=== PATIENT | female | born 1965 | race African-American/Black ===

== ENCOUNTER → 2017-09-15 | Outpatient (CLI) | payer BC ==
[~2017-09-15] MED LIST: AMLO10TA80 PO; HYDR-519 PO; LOSA100T14 PO; OXYC-100 PO
[2017-09-15 08:23] LABS: CLARITY URINE CLEAR (CLEAR); COLOR URINE YELLOW (YELLOW); KETONES URINE NEGATIVE (NEGATIVE); LEUKOCYTE ESTERASE URINE 1+ (NEGATIVE); NITRITE URINE NEGATIVE (NEGATIVE); OCCULT BLOOD URINE NEGATIVE (NEGATIVE); PROTEIN URINE NEGATIVE (NEGATIVE); SPECIFIC GRAVITY URINE 1.022 (1.005-1.030)
[2017-09-15 08:34] LABS: BASOPHILS % 0.6 % (0.0-2.0); EOSINOPHILS % 1.2 % (0.0-5.0); HEMATOCRIT. 35.8 % (36.0-48.0); HEMOGLOBIN. 12.3 g/dL (12.0-16.0); LYMPHOCYTES % 38.7 % (20.0-50.0); MEAN CORPUSCULAR HEMOGLOBIN 31.4 pg (28.0-32.0); MEAN CORPUSCULAR VOLUME 91.5 fL (81.0-99.0); MEAN PLATELET VOLUME 7.7 fl (7.4-10.4); MONOCYTES % 7.1 % (2.0-8.0); NEUTROPHILS % 52.4 % (40.0-76.0); PLATELET 323 x1000/uL (130-400); RED BLOOD CELL COUNT 3.91 mill/uL (4.2-5.4); RED CELL DISTRIBUTION WIDTH 13.1 % (11.6-14.6)
[2017-09-15 08:37] LABS: CHLORIDE 101 mEq/L (98-107)
[2017-09-15 08:46] LABS: LDL CHOLESTEROL 90 mg/dL (5-100)
[2017-09-15 08:48] LABS: HDL CHOLESTEROL 58 mg/dL (40-59); TOTAL IRON BINDING CAPACITY 291 ug/dL (250-450)
== END | disposition home or self-care (01) ==
LOC: LAB 07:47
PROVIDERS: ATTEND Internal Medicine
DX: I10 Essential (primary) hypertension (principal); E78.5 Hyperlipidemia, unspecified; R73.03 Prediabetes; R79.89 Other specified abnormal findings of blood chemistry
CPT/HCPCS: 36415; 80053; 80061; 81003; 82306; 82728; 83036; 83540; 83550; 84443; 85025; 87086

== ENCOUNTER → 2017-09-21 | Outpatient (CLI) | payer BC | END | disposition home or self-care (01) | LOC: MAMMO 07:44 | PROVIDERS: ATTEND Internal Medicine | DX: Z12.31 Encounter for screening mammogram for malignant neoplasm of breast (principal) | CPT/HCPCS: 77067 ==

== ENCOUNTER 2017-12-27 22:58 | Emergency (ER) | payer BC ==
[~2017-12-27] VITALS: Ht 157.5 cm; Wt 68.0 kg
[2017-12-28 01:16] VITALS: BP 141/80
== END 2017-12-28 01:18 | disposition home or self-care (01) ==
LOC: ER 22:58
DX: K04.7 Periapical abscess without sinus (principal); I10 Essential (primary) hypertension; Z88.5 Allergy status to narcotic agent; Z90.710 Acquired absence of both cervix and uterus
CPT/HCPCS: 99283; Z7610

== ENCOUNTER → 2019-03-10 | Outpatient (CLI) | payer BC ==
[~2019-03-10] MED LIST changes: -LOSA100T14 PO; +LOSA100T32 PO
[2019-03-10 05:52] LABS: CHLORIDE 109 mEq/L (98-107)
[2019-03-10 06:00] LABS: HDL CHOLESTEROL 63 mg/dL (40-59)
[2019-03-10 06:01] LABS: LDL CHOLESTEROL 85 mg/dL (5-100)
[2019-03-10 06:40] LABS: BASOPHILS % 0.6 % (0.0-2.0); EOSINOPHILS % 2.2 % (0.0-5.0); HEMATOCRIT. 39.2 % (36.0-48.0); HEMOGLOBIN. 13.2 g/dL (12.0-16.0); LYMPHOCYTES % 34.1 % (20.0-50.0); MEAN CORPUSCULAR HEMOGLOBIN 32.1 pg (28.0-32.0); MEAN CORPUSCULAR VOLUME 95.5 fL (81.0-99.0); MEAN PLATELET VOLUME 8.4 fl (7.4-10.4); MONOCYTES % 7.7 % (2.0-8.0); NEUTROPHILS % 55.4 % (40.0-76.0); PLATELET 256 x1000/uL (130-400); RED CELL DISTRIBUTION WIDTH 13.1 % (11.6-14.6)
[2019-03-10 07:31] LABS: CLARITY URINE CLEAR (CLEAR); COLOR URINE YELLOW (YELLOW); KETONES URINE TRACE (NEGATIVE); LEUKOCYTE ESTERASE URINE NEGATIVE (NEGATIVE); NITRITE URINE NEGATIVE (NEGATIVE); OCCULT BLOOD URINE NEGATIVE (NEGATIVE); PH URINE 5.5 (4.5-8.0); PROTEIN URINE NEGATIVE (NEGATIVE); SPECIFIC GRAVITY URINE 1.029 (1.005-1.030)
== END | disposition home or self-care (01) ==
LOC: LAB 03:28
PROVIDERS: ATTEND Internal Medicine
DX: I10 Essential (primary) hypertension (principal)
CPT/HCPCS: 36415; 80061; 81003; 84443

== ENCOUNTER 2020-03-22 01:37 | Emergency (ER) | payer BC ==
[~2020-03-22] VITALS: Ht 154.9 cm; Wt 82.0 kg
[2020-03-22 01:47] VITALS: BP 132/85
[2020-03-22] MEDS ORDERED: ONDANSETRON HCL 4MG/2ML INJ IV STA (02:07)
[2020-03-22] MEDS ORDERED: MORPHINE SULFATE 4 MG/ML CPJ (NOT FOR IM USE) IV STA (02:07)
[2020-03-22] MEDS ORDERED: SODIUM CHLORIDE 0.9% 1,000 ML IV ONE (02:15)
[2020-03-22 02:47] LABS: BASOPHILS % 0.7 % (0.0-2.0); EOSINOPHILS % 1.3 % (0.0-5.0); HEMATOCRIT. 41.6 % (36.0-48.0); HEMOGLOBIN. 14.1 g/dL (12.0-16.0); LYMPHOCYTES % 32.2 % (20.0-50.0); MEAN CORPUSCULAR HEMOGLOBIN 32.4 pg (28.0-32.0); MEAN CORPUSCULAR VOLUME 95.4 fL (81.0-99.0); MEAN PLATELET VOLUME 8.2 fl (7.4-10.4); NEUTROPHILS % 56.8 % (40.0-76.0); PLATELET 272 x1000/uL (130-400); RED BLOOD CELL COUNT 4.36 mill/uL (4.2-5.4); RED CELL DISTRIBUTION WIDTH 13.7 % (11.6-14.6)
[2020-03-22 02:53] LABS: CHLORIDE 109 mEq/L (98-107)
[2020-03-22] MEDS ORDERED: ACETAMINOPHEN 325MG TABLET PO ONE (03:30)
[2020-03-22] MEDS ORDERED: IOHEXOL-300 100 ML BOTTLE ONE (03:54)
== END 2020-03-22 05:36 | disposition home or self-care (01) ==
LOC: ER 01:37
DX: S30.1XXA Contusion of abdominal wall, initial encounter (principal); V49.49XA Driver injured in collision with other motor vehicles in traffic accident, initial encounter; Y93.89 Activity, other specified; Y92.89 Other specified places as the place of occurrence of the external cause; Y99.8 Other external cause status; I10 Essential (primary) hypertension; Z90.710 Acquired absence of both cervix and uterus; Z79.899 Other long term (current) drug therapy; Z88.5 Allergy status to narcotic agent
CPT/HCPCS: 36415; 71045; 73060; 73120; 74177; 80053; 85025; 86850; 86900; 86901; 96360; 99285; J7030; Q9967; J2270; J2405

== ENCOUNTER → 2020-09-03 | Outpatient (CLI) | payer BC | END | disposition home or self-care (01) | LOC: RAD 10:51 | DX: S80.01XA Contusion of right knee, initial encounter (principal); S80.11XA Contusion of right lower leg, initial encounter; M25.561 Pain in right knee; M25.461 Effusion, right knee; X58.XXXA Exposure to other specified factors, initial encounter; Y93.89 Activity, other specified; Y92.89 Other specified places as the place of occurrence of the external cause; Y99.8 Other external cause status | CPT/HCPCS: 93971 ==

== ENCOUNTER → 2021-03-08 | Outpatient (CLI) | payer BC ==
[~2021-03-08] MED LIST changes: +ALBU18HF2 IH; +P20 PO
[2021-03-08 08:06] LABS: BASOPHILS % 0.7 % (0.0-2.0); EOSINOPHILS % 1.3 % (0.0-5.0); HEMATOCRIT. 38.9 % (36.0-48.0); LYMPHOCYTES % 37.2 % (20.0-50.0); MEAN CORPUSCULAR HEMOGLOBIN 31.5 pg (28.0-32.0); MEAN CORPUSCULAR VOLUME 94.4 fL (81.0-99.0); MEAN PLATELET VOLUME 7.9 fl (7.4-10.4); MONOCYTES % 9.2 % (2.0-8.0); NEUTROPHILS % 51.6 % (40.0-76.0); PLATELET 285 x1000/uL (130-400); RED BLOOD CELL COUNT 4.13 mill/uL (4.2-5.4); RED CELL DISTRIBUTION WIDTH 13.1 % (11.6-14.6)
[2021-03-08 08:34] LABS: CHLORIDE 103 mEq/L (98-107)
[2021-03-08 08:40] LABS: LDL CHOLESTEROL 107 mg/dL (5-100)
[2021-03-08 08:41] LABS: HDL CHOLESTEROL 69 mg/dL (40-59)
[2021-03-08 10:10] LABS: CLARITY URINE CLEAR (CLEAR); COLOR URINE YELLOW (YELLOW); KETONES URINE NEGATIVE (NEGATIVE); LEUKOCYTE ESTERASE URINE NEGATIVE (NEGATIVE); NITRITE URINE NEGATIVE (NEGATIVE); OCCULT BLOOD URINE NEGATIVE (NEGATIVE); PROTEIN URINE NEGATIVE (NEGATIVE); SPECIFIC GRAVITY URINE 1.015 (1.005-1.030); UROBILINOGEN URINE 0.2 E.U./dL (0.2-1.0)
== END | disposition home or self-care (01) ==
LOC: LAB 07:15
PROVIDERS: ATTEND Internal Medicine
DX: Z00.00 Encounter for general adult medical examination without abnormal findings (principal)
CPT/HCPCS: 36415; 80053; 80061; 81003; 83036; 84443; 85025

== ENCOUNTER 2021-03-11 03:03 | Emergency (ER) | payer BC ==
[~2021-03-11] VITALS: Ht 154.9 cm; Wt 72.0 kg
[~2021-03-11 03:03] MED LIST changes: -ALBU18HF2 IH; -P20 PO
[2021-03-11 03:10] VITALS: BP 140/80
[2021-03-11] MEDS ORDERED: ALBUTEROL (0.083%) 2.5MG/3ML NEB HHN STA (03:10)
[2021-03-11] MEDS ORDERED: ALBU18HF2 IH (03:41)
[2021-03-11] MEDS ORDERED: P20 PO (03:43)
[2021-03-11] MEDS ORDERED: METHYLPREDNISOLONE SOD SUCC 125 MG/2 ML VIAL IM NR (03:45)
== END 2021-03-11 03:55 | disposition home or self-care (01) ==
LOC: ER 03:03 → MERGE 03:03 → ER 03:55
DX: J45.901 Unspecified asthma with (acute) exacerbation (principal); I10 Essential (primary) hypertension
CPT/HCPCS: 94640; 99283; J2930; Z7610

== ENCOUNTER → 2021-03-12 | Outpatient (CLI) | payer BC ==
[~2021-03-12] MED LIST changes: +ALBU18HF2 IH; +P20 PO
== END | disposition home or self-care (01) ==
LOC: MAMMO 07:07
PROVIDERS: ATTEND Internal Medicine
DX: Z12.31 Encounter for screening mammogram for malignant neoplasm of breast (principal); N63.11 Unspecified lump in the right breast, upper outer quadrant
CPT/HCPCS: 77063; 77067

== ENCOUNTER 2023-07-11 23:37 | Emergency (ER) | payer BC ==
[~2023-07-11] VITALS: Ht 162.6 cm; Wt 85.0 kg
[~2023-07-11 23:37] MED LIST changes: -LOSA100T32 PO; +LOSA100T33 PO
[2023-07-11 23:49] VITALS: O2SAT 98
[2023-07-12] MEDS ORDERED: AMOX1TAB16 PO (01:36)
[2023-07-12] MEDS ORDERED: D-ME473S50 PO (01:36)
[2023-07-12 03:00] VITALS: BP 148/83; PULSE 78; RESP 18; TEMP 97.9
== END 2023-07-12 03:00 | disposition home or self-care (01) ==
LOC: ER 23:37
DX: J20.9 Acute bronchitis, unspecified (principal); Z20.822 Contact with and (suspected) exposure to COVID-19
CPT/HCPCS: 71045; 87070; 87426; 87430; 87804; 99284

== ENCOUNTER → 2023-07-18 | Outpatient (CLI) | payer BC ==
[~2023-07-18] MED LIST changes: +AMOX1TAB16 PO; +D-ME473S50 PO
== END | disposition home or self-care (01) ==
LOC: MAMMO 07:14
PROVIDERS: ATTEND Internal Medicine
DX: Z12.31 Encounter for screening mammogram for malignant neoplasm of breast (principal)
CPT/HCPCS: 77063; 77067

== ENCOUNTER 2024-07-15 21:37 | Emergency (ER) | payer BC ==
[~2024-07-15] VITALS: Ht 154.9 cm; Wt 72.0 kg
[2024-07-15 21:40] VITALS: BP 153/92; TEMP 36.4; O2SAT 100
[2024-07-15 21:41] VITALS: PULSE 93; RESP 18; O2SAT 99
[2024-07-15] MEDS ORDERED: ONDANSETRON HCL 4MG/2ML INJ IV STA (21:48)
[2024-07-15] MEDS ORDERED: KETOROLAC 30MG/ML VIAL IV STA (21:48)
[2024-07-15] MEDS ORDERED: FAMOTIDINE 20MG/2ML VIAL IV ONE (22:00)
[2024-07-15] MEDS ORDERED: SODIUM CHLORIDE 0.9% 1,000 ML IV ONE (22:00)
[2024-07-15 23:17] LABS: BASOPHILS % 0.5 % (0.0-2.0); DIFFERENTIAL COMMENT 0; EOSINOPHILS % 0.1 % (0.0-5.0); HEMATOCRIT. 39.8 % (36.0-48.0); HEMOGLOBIN. 13.5 g/dL (12.0-16.0); MEAN CORPUSCULAR HEMOGLOBIN 34.3 pg (28.0-32.0); MEAN CORPUSCULAR HGB CONC 33.8 g/dL (31.0-37.0); MEAN CORPUSCULAR VOLUME 101.5 fL (81.0-99.0); MEAN PLATELET VOLUME 7.2 fl (7.4-10.4); MONOCYTES % 4.9 % (2.0-8.0); NEUTROPHILS % 86.5 % (40.0-76.0); PLATELET 296 x1000/uL (130-400); RED BLOOD CELL COUNT 3.92 mill/uL (4.2-5.4); RED CELL DISTRIBUTION WIDTH 13.8 % (11.6-14.6); WHITE BLOOD COUNT 5.6 x1000/uL (4.5-11.0)
[2024-07-15 23:40] LABS: CLARITY URINE CLEAR (CLEAR); COLOR URINE YELLOW (YELLOW); GLUCOSE URINE NEGATIVE (NEGATIVE); KETONES URINE NEGATIVE (NEGATIVE); LEUKOCYTE ESTERASE URINE NEGATIVE (NEGATIVE); NITRITE URINE NEGATIVE (NEGATIVE); OCCULT BLOOD URINE NEGATIVE (NEGATIVE); PROTEIN URINE NEGATIVE (NEGATIVE); UROBILINOGEN URINE 0.2 E.U./dL (0.2-1.0)
[2024-07-15 23:43] LABS: CHLORIDE 101 mEq/L (98-107); SODIUM 137 mEq/L (136-145)
[2024-07-15 23:44] LABS: CALCIUM 9.2 mg/dL (8.7-10.4); CARBON DIOXIDE 25 mEq/L (21-32)
[2024-07-15 23:49] LABS: CREATININE 0.9 mg/dL (0.6-1.0); GLUCOSE 93 mg/dL (70-105); UREA NITROGEN BLOOD 13 mg/dL (9-23)
[2024-07-15 23:51] LABS: ALANINE AMINOTRANSFERASE 10 IU/L (10-49); ALBUMIN 4.5 g/dL (3.2-4.8); ASPARTATE AMINOTRANSFERASE 20 IU/L (<34); BILIRUBIN TOTAL 0.4 mg/dL (0.1-1.0); PROTEIN TOTAL 8.3 g/dL (6.0-8.3)
[2024-07-16] MEDS ORDERED: KETOROLAC 30MG/ML VIAL IV NR (00:30)
[2024-07-16] MEDS: FAMOTIDINE 20MG/2ML VIAL IV NR (00:57)
[2024-07-16] MEDS: ONDANSETRON HCL 4MG/2ML INJ IV NR (00:57)
[2024-07-16] MEDS: FAMOTIDINE 20MG TABLET PO ONE (01:13)
[2024-07-16] MEDS: ONDANSETRON 4MG ODT PO ONE (01:13)
[2024-07-16 02:06] LABS: TROPONIN I HIGH SENSITIVITY < 4 ng/L (3.0-34)
== END 2024-07-16 02:03 | disposition left against medical advice (07) ==
LOC: ER 21:37
DX: F41.9 Anxiety disorder, unspecified (principal); R10.11 Right upper quadrant pain; Z90.710 Acquired absence of both cervix and uterus; Z79.52 Long term (current) use of systemic steroids; Z79.899 Other long term (current) drug therapy; Z88.5 Allergy status to narcotic agent
CPT/HCPCS: 99284; 76705; 71045; 80053; 81003; 83690; 85025; 84484; 36415; J7030; Q0162; J1885; J2405; J3490

== ENCOUNTER → 2025-04-17 | Outpatient (CLI) | payer BC | END | disposition home or self-care (01) | LOC: MAMMO 07:03 | PROVIDERS: ATTEND Internal Medicine | DX: Z12.31 Encounter for screening mammogram for malignant neoplasm of breast (principal); N63.15 Unspecified lump in the right breast, overlapping quadrants; R92.323 Mammographic fibroglandular density, bilateral breasts | CPT/HCPCS: 77063; 77067 ==